=== PATIENT | female | born 1945 | race Caucasian/White ===

== ENCOUNTER 2017-03-16 22:37 | Emergency (ER) | payer MEDICARE ==
[2017-03-16 23:01] VITALS: BP 133/72
[2017-03-16 23:23] LABS: Urine Bilirubin Negative (Negative); Urine Glucose Negative (Negative); Urine Nitrite Negative (Negative)
[2017-03-17] MEDS ORDERED: Ibuprofen TAB* 400 MG PO ONE (01:42)
--- NOTE | 2017-03-17 01:47 | ED ---
GI/ HPI - HPI Summary HPI Summary: 71 female presents to ED with complaints of "feels like my pee hole is going to fall out". States the pain has been ongoing for the past 10 days and has been worsening, thought she may have a UTI. Describes pain to be burning and she urinates to try and relieve pain. Admits to frequency/urgency however is taking a new diuretic which was expected. Points to external pain. Denies STD concern and discharge. No blood in urine. Admits to it being hot and itchy at times. Admits to alcohol use and had a few drinks [employer]. No other complaints. Denies abdominal and back pain. PMHx significant for depression and HTN. Normal bowel movements. Denies fever/chills. No radiation. No history of herpes. Nothing makes pain better. Has not tried any medications. Admits to a prolapsed rectum that is currently followed up and is not causing her pain. - History of Current Complaint Chief Complaint: EDUrogenitalProblems Time Seen by Provider: 03/17/17 01:08 Stated Complaint: PAINFUL URINATION Hx Obtained From: Patient Onset/Duration: Started Weeks Ago - 1, Still Present, Worse Since Timing: Constant Severity: Mild Current Severity: Moderate Pain Intensity: 8 Additional Location for Females: Vulva - vulvovaginal/urethra Pain Characteristics: Aching, Burning - hot, pain,, Itching Associated Signs and Symptoms: Positive: Negative, UTI Symptoms Additional Signs & Symptoms: Positive: Other: - menopause. Negative: Genital Swelling, Genital Blisters, Vaginal Bleeding, Vaginal Discharge, STD, First Day of Last Menstral Period, IUD Aggravating Factor(s): Urination, Sitting Alleviating Factor(s): Nothing, Position - Allergy/Home Medications Allergies/Adverse Reactions: Allergies Allergy/AdvReac Type Severity Reaction Status Date / Time unknown name of antibiotic Allergy Unknown Uncoded 03/16/17 23:03 Reaction Details PMH/Surg Hx/FS Hx/Imm Hx Endocrine/Hematology History: Denies: Hx Diabetes Cardiovascular History: Reports: Hx Hypertension Respiratory History: Denies: Hx Asthma History: Reports: Other Problems/Disorders - menopause Denies: Hx Kidney Infection, Hx Kidney Stones, Hx Renal Disease Psychiatric History: Reports: Hx Depression - Surgical History Surgery Procedure, Year, and Place: n/a - Immunization History Immunizations Up to Date: Yes Infectious Disease History: No Infectious Disease History: Denies: Traveled Outside the [place] in Last 30 Days - Family History Known Family History: Positive: Unknown - Social History Alcohol Use: Daily Alcohol Amount: " a few drinks" Substance Use Type: Reports: None Review of Systems Constitutional: Negative Cardiovascular: Negative Respiratory: Negative Gastrointestinal: Negative Positive: see HPI, burning, dysuria, frequency, pain, urgency Musculoskeletal: Negative Skin: Negative Neurological: Negative All Other Systems Reviewed And Are Negative: Yes Physical Exam Triage Information Reviewed: Yes Vital Signs On Initial Exam: Initial Vitals Temp Pulse Resp BP Pulse Ox 97.2 F 93 16 133/72 94 03/16/17 22:57 03/16/17 22:57 03/16/17 22:57 03/16/17 22:57 03/16/17 22:57 Vital Signs Reviewed: Yes Appearance: Positive: Well-Appearing - appears to be slightly intoxicated however still alert and oriented, smell of ETOH noted, No Pain Distress, Well- Nourished Skin: Positive: Warm, Skin Color Reflects Adequate Perfusion, Dry. Negative: Cold, Cyanosis @, Pale, Erythema @ Head/Face: Positive: Normal Head/Face Inspection Eyes: Positive: Conjunctiva Clear ENT: Positive: Hearing grossly normal Neck: Positive: Supple, Nontender, No Lymphadenopathy Respiratory/Lung Sounds: Positive: Clear to Auscultation, Breath Sounds Present. Negative: Rales, Rhonchi, Wheezes Cardiovascular: Positive: Normal, RRR, Pulses are Symmetrical in both Upper and Lower Extremities. Negative: Murmur, Rub Abdomen Description: Positive: Nontender, No Organomegaly, Soft. Negative: Bruit, CVA Tenderness (R), CVA Tenderness (L), Distended, Guarding, McBurney's Point Tenderness, Peritoneal Signs, Pulsatile Mass Bowel Sounds: Positive: Present Pelvic Exam: Positive: speculum exam normal, bimanual exam normal, no cerv. motion tender, no masses, discharge - white in color, other - erythema external vulvovaginal area and vaginal canal, irritated. points to pain at vulva area, different specific area every time. Negative: active bleeding, blood, cervicitis, tender adnexa, tender uterus Musculoskeletal: Positive: Normal, Strength/ROM Intact Neurological: Positive: Normal, Sensory/Motor Intact, Alert, Oriented to Person Place, Time, [place] Bundle Intact Distally, Normal Gait Psychiatric: Positive: Affect/Mood Appropriate - Jorge Coma Scale Best Eye Response: 4 - Spontaneous Best Motor Response: 6 - Obeys Commands Best Verbal Response: 5 - Oriented Diagnostics - Vital Signs Vital Signs Temp Pulse Resp BP Pulse Ox 03/16/17 23:03 97.2 F 93 16 133/72 94 03/16/17 22:57 97.2 F 93 16 133/72 94 - Laboratory Lab Results: Lab Results 03/16/17 Range/Units 23:10 Urine Color Colorless Urine Appearance Clear Urine pH 5.0 (5-9) Ur Specific [place] 1.002 L (1.010-1.030) Urine Protein Negative (Negative) Urine Ketones Negative (Negative) Urine Blood Negative (Negative) Urine Nitrate Negative (Negative) Urine Bilirubin Negative (Negative) Urine Urobilinogen Negative (Negative) Ur Leukocyte Esterase Negative (Negative) Urine Glucose Negative (Negative) Lab Statement: Any lab studies that have been ordered have been reviewed, and results considered in the medical decision making process. GIGU Course/Dx - Course Course Of Treatment: pelvic exam completed, appears to possibly be some irritation/bruno infection. affirm culture swab obtained. no concern for herpes or STD. no concern for kidney stone, prolapsed uterus that is easily visualized or urinary tract/kidney infection. normal vitals. no abdominal pain. told to try some tylenol/ibuprofen for pain. possible cause it tight fitting clothing, sweating and alcohol use. patient was a difficult historian with describing symptoms. urinalysis completely negative. pending results. due to PE findings and some complaints of symptoms will treat for vulvovaginal candidiasis. Follow up OBGYN/urology if worsening, persisting symptoms or new symptoms. Aware of worsening signs and symptoms. Patient agrees and understands. No other concern for emergent etiology at this time. Follow up PCP. - Diagnoses Differential Diagnoses - Female: Bladder Dysfunction, Candidiasis, Cystitis, Prolapsed Rectum, Rectal Fissure, Rectal Polyps, Renal Calculi, STD, Urinary Tract Infection, Ureteral Calculi, Vaginitis Provider Diagnoses: Vulvovaginal candidiasis, Dysuria Discharge - Discharge Plan Condition: Stable Disposition: HOME Prescriptions: Terconazole Vaginal [Terazol 3] 0.8 % VAGINAL BEDTIME #1 cre Patient Education Materials: Vulvovaginal Candidiasis (ED) Referrals: Salinas Rizvi MD [Medical Doctor] - Jose Coyne MD [Medical Doctor] - Additional Instructions: Use prescribed medication as directed. Take ibuprofen or tylenol for pain. Decrease use of alcohol. Keep genitalia area clean and dry. Avoid tight fighting clothing. You will hear about culture results when received, if positive. If new symptoms develop or symptoms worsen, please seek medical attention. Follow up with Primary care provider. Make an appointment with urologist/OBGYN if symptoms persist.
== END 2017-03-17 01:54 | disposition home or self-care (01) ==
LOC: ED 22:37
DX: B37.3 Candidiasis of vulva and vagina (principal); R30.0 Dysuria
CPT/HCPCS: 81003; 87086; 87480; 87510; 87660; 99282; A9270-GY